=== PATIENT | female | born 1960 | race Caucasian/White ===

== ENCOUNTER 2019-03-16 06:21 | Day surgery (SDC) | payer OTHER ==
[2019-03-15 14:00] VITALS: BP 134/64
[2019-03-15 14:17] LABS: BASOPHILS % (AUTO) 0.7 % (0.0-5.0); EOSINOPHILS % (AUTO) 1.9 % (0.0-8.0); HEMATOCRIT 44.3 % (36-48); LYMPHOCYTES % (AUTO) 28.2 % (21.0-51.0); MEAN CORPUSCULAR HEMOGLOBIN 30.6 pg (27.0-33.0); MEAN CORPUSCULAR HGB CONC 33.7 g/dL (32.0-36.0); MEAN CORPUSCULAR VOLUME 90.6 fL (79-99); MONOCYTES % (AUTO) 8.2 % (3.0-13.0); NUCLEATED RED BLOOD CELLS 0.1 % (0.0-0.19); PLATELET COUNT (AUTO) 283 K/uL (130-400); RED BLOOD CELL COUNT(AUTO) 4.88 MIL/uL (4.00-5.50); RED CELL DISTRIBUTION WIDTH 13.6 % (11.0-15.5); WHITE BLOOD COUNT (AUTO) 9.7 K/uL (4.8-10.8)
[2019-03-15 14:47] LABS: POTASSIUM 4.2 mmol/L (3.5-5.1)
[2019-03-16] VITALS (17 sets, daily range): BP systolic 112–151; BP diastolic 55–76
[~2019-03-16 06:21] MED LIST: METO25TA6 PO
[2019-03-16] MEDS ORDERED: SODIUM CHLORIDE 0.9% 1000ML 1,000 ML IV ONE (06:57)
[2019-03-16] MEDS ORDERED: CEFAZOLIN SODIUM 1 GM VIAL IVP ONE (08:00)
[2019-03-16] MEDS ORDERED: LACTATED RINGERS 1000ML 1,000 ML IV SCH (08:00)
[2019-03-16] MEDS ORDERED: STRONG IODINE SOLUTION 30ML BOTTLE ONE (08:26)
[2019-03-16] MEDS ORDERED: VASOPRESSIN 20 UNITS/ML 1ML VIAL ONE (08:26)
[2019-03-16] MEDS ORDERED: FENTANYL CITRATE PF 50 MCG/1 ML 2ML VIAL ONE (08:56)
[2019-03-16] MEDS ORDERED: MIDAZOLAM HCL 1 MG/ML 2ML VIAL ONE (08:56)
[2019-03-16] MEDS ORDERED: LIDOCAINE PF 2% 5ML ABBOJECT ONE (08:56)
[2019-03-16] MEDS ORDERED: PROPOFOL 10 MG/ML 20ML VIAL IV ONE (08:56)
[2019-03-16] MEDS ORDERED: ONDANSETRON HCL 4 MG/2 ML VIAL ONE (09:42)
--- NOTE | 2019-03-16 10:53 | NUR ---
ASSESSMENT RECEIVED PT FROM PACU STAFF LIVIER MAYO. PT AAOX3. PERIPAD IN PLACE. NO BLEEDING NOTED. FAMILY AT BEDSIDE.
--- NOTE | 2019-03-16 11:10 | NUR ---
DISCHARGE ORAL AND WRITTEN DISCHARGE INSTRUCTIONS GIVEN TO PT AND PTS ALONG WITH PRESCRIPTION. INSTRUCTED ON IMPORTANCE OF VOIDING WITHIN 6 HOURS OF DISCHARGE. IF NO URINATION, INSTRUCTED TO REPORT TO ER OR CALL DR. RODRIGUEZ. BOTH VERBALIZED UNDERSTANDING.
== END 2019-03-16 11:15 | disposition home or self-care (01) ==
LOC: DAH 06:21
PROVIDERS: ATTEND Specialist
DX: R87.613 High grade squamous intraepithelial lesion on cytologic smear of cervix (HGSIL) (principal); I10 Essential (primary) hypertension; E11.9 Type 2 diabetes mellitus without complications; Z79.899 Other long term (current) drug therapy; Z87.891 Personal history of nicotine dependence; Z82.49 Family history of ischemic heart disease and other diseases of the circulatory system
CPT/HCPCS: 36415; 57520; 80048; 82948; 85025; 88307; 93005; A4351; C1769; J2001; J2250; J2405; J2704; J3010; J3490; J7030; J7120